=== PATIENT | female | born 1940 | race Caucasian/White ===

== ENCOUNTER 2016-11-22 14:34 | Inpatient (IN) | payer MEDICARE ==
[~2016-11-22] VITALS: Ht 165.1 cm; Wt 84.6 kg
[~2016-11-22 14:34] MED LIST: ASCO100089 PO; CALCIUM CITRATE PO; CRANBERRY TABS PO; EST42.5C VG; GABA300C PO; GLU500 PO; GLUC1TAB57 PO; LEVO50TA83 PO; LIP40 PO; LISI10TA9 PO; MVI PO; NITR-66 PO; PAM25 PO; TURM1POW PO; keflex
[2016-11-22 16:25] VITALS: PULSE 82
[2016-11-22 16:30] VITALS: BP 110/66; PULSE 86; RESP 16; O2SAT 98
[2016-11-22] MEDS ORDERED: Polyethylene Glycol (PEG) 17 Gm Powder PO PRN (17:45)
[2016-11-22] MEDS ORDERED: Ondansetron 2 mg/mL 2 mL Inj IVPUSH PRN (17:45)
[2016-11-22] MEDS ORDERED: Glucose 40% Oral Gel 15 Gm Tube PO PRN (17:45)
--- NOTE | 2016-11-22 17:46 | NUR ---
Admit Pt admitted to [facility] from [facility] at around 1630. A&Ox3, BAILEY walking in room. Vitals stable. Tele placed in NSR 86, no c/o pain. IV SL in right wrist, hard start from report. MD rounded. Admit complete. Oriented to room and call light.
[2016-11-22] MEDS ORDERED: ATOR40TA69 PO (18:16)
[2016-11-22] MEDS ORDERED: CEPH500T PO (18:16)
[2016-11-22] MEDS ORDERED: AMOX500T2 PO (18:16)
[2016-11-22] MEDS ORDERED: CIPR-198 PO (18:16)
[2016-11-22] MEDS ORDERED: EPIN0.3P17 IJ (18:19)
[2016-11-22] MEDS ORDERED: CLOT15CR5 EXTERNAL (18:19)
[2016-11-22] MEDS ORDERED: LEVO50TA83 PO (18:24)
[2016-11-22] MEDS ORDERED: FURO40TA4 PO (18:24)
[2016-11-22] MEDS ORDERED: NITR0.4T SL (18:24)
[2016-11-22] MEDS ORDERED: PREG50CA PO ×2 (18:24)
[2016-11-22] MEDS ORDERED: METF-777 PO (18:24)
[2016-11-22] MEDS ORDERED: SITA50TA PO (18:24)
[2016-11-22] MEDS ORDERED: LORA0.5T PO (18:24)
[2016-11-22] MEDS ORDERED: NYST15CR TOPICAL (18:25)
[2016-11-22] MEDS ORDERED: NORT25CA PO (18:25)
[2016-11-22] MEDS ORDERED: ZOLP5TAB6 PO (18:31)
[2016-11-22] MEDS ORDERED: ACET-171 PO (18:31)
[2016-11-22] MEDS ORDERED: RIVA20TA PO (18:31)
[2016-11-22] MEDS ORDERED: TRAM50TA2 PO (18:31)
[2016-11-22] MEDS ORDERED: PHEN-777 PO (18:31)
[2016-11-22] MEDS ORDERED: TURM1POW PO (18:39)
[2016-11-22] MEDS ORDERED: [UNRECOGNIZED DRUG - OTHER] PO (18:39)
[2016-11-22] MEDS ORDERED: COFF400C PO (18:39)
[2016-11-22] MEDS ORDERED: [UNRECOGNIZED DRUG - OTHER] PEG (18:39)
[2016-11-22] MEDS ORDERED: [UNRECOGNIZED DRUG - OTHER] PO (18:39)
[2016-11-22] MEDS ORDERED: HERB1CAP2 PO (18:39)
[2016-11-22] MEDS ORDERED: [UNRECOGNIZED DRUG - OTHER] PO (18:39)
[2016-11-22] MEDS ORDERED: IC-5 PO (18:39)
[2016-11-22] MEDS ORDERED: [UNRECOGNIZED DRUG - OTHER] PO (18:46)
[2016-11-22] MEDS ORDERED: VITA2500 PO (18:46)
[2016-11-22] MEDS ORDERED: TRIPHALA PO (18:46)
[2016-11-22] MEDS ORDERED: CYAN10008 PO (18:46)
[2016-11-22] MEDS ORDERED: CHOL10008 PO (18:46)
[2016-11-22] MEDS ORDERED: MULT1CAP33 PO (18:46)
[2016-11-22] MEDS ORDERED: [UNRECOGNIZED DRUG - OTHER] PO (18:46)
[2016-11-22] MEDS ORDERED: ASCO100089 PO (18:46)
--- NOTE | 2016-11-22 18:46 | PCM.HPMED ---
Subjective Date of Service November 22, 2016 Primary Provider: Admitting Physician: James Walker MD Primary Care Physician: Travis Killian MD Attending Physician: James Walker MD Admit Status: Full Admit, Ad[facility] to [facility], [facility] Telemetry Chief Complaint: Paroxysmal atrial fibrillation with rapid response History of Present Illness: This is a 76-year-old female transferred from [facility] today for paroxysmal A. fib with rapid ventricular response. She has a history of paroxysmal arrhythmia and had been on amiodarone until May of this year. This was stopped due to concerns about pulmonary toxicity based on pulmonary function tests. She was admitted to [facility] 2 days ago for palpitations and had atrial fibrillation with rapid ventricular response. She was treated with rate control medications including beta blockers. She had a conversion to sinus rhythm but then stated that she went back into atrial flutter later this afternoon. The doctor at the hospital discussed the case with her regular sample builder who requested transfer for a sotalol load. She has only been on amiodarone. She is chronically anticoagulated. She denies any dyspnea or chest pain last day or 2. She denies feeling more weak today. No recent URI symptoms including rhinorrhea cough or sore throat. No leg edema. No calf pain or hemoptysis. The patient is on chronic Synthroid and a TSH of 0.02 obtained at [facility]. She does not believe that her levels been checked in some time. Review of Systems: No weight change, anxiety or depression. No constipation or diarrhea. No temperature intolerance. All systems reviewed and otherwise negative except as noted in history of present illness Allergies Coded Allergies: Diphenhydramine HCl (Verified Allergy, Severe, itching, rash, N/V, 10/04/09) Sulfa (Sulfonamide Antibiotics) (Verified Allergy, Severe, Rash, 10/04/09) Paclitaxel,Semi-Synthetic (Verified Allergy, Mild, Rash, 10/04/09) Uncoded Allergies: transpor tape (Adverse Reaction, causes red weldon on pts body, 10/04/09) pt stating this is the name of surgical tape Home Medications Lovastatin 40 mg a day EpiPen when necessary furosemide 40 mg a day Januvia 50 mg a day levothyroxine 50 g a day lorazepam 0.5 mg when necessary Lyrica 100 mg in the morning 50 at noon and evening Metformin 1000 mg twice a day, nortriptyline 50 mg at bedtime, Nitrostat when necessary, tramadol 50 mg when necessary pains, Zaroxolyn 20 mg daily, as zolpidem 5 mg at bedtime when necessary PMH Paroxysmal atrial flutter Breast cancer with a left modified radical mastectomy in 1999 Cardiac ablation in 2006 Hypothyroidism Hyperlipidemia Diabetes mellitus 2 Overweight Remote history of smoking and stopped in 2000 Surgical History Meniscal repair left knee Tonsillectomy Bladder suspension Tubal ligation Appendectomy Left modified radical mastectomy Right modified radical mastectomy Heart ablation Family History Father with premature CAD with at age 42 heart attack Social History Occupation: retired Hx Alcohol Use: No Hx Substance Use: No Hx Tobacco Use: Yes (quite mar 2003) Living Arrangement: with Family Exam Vital Signs Vital Sign - Last Date Time Temp Pulse Resp B/P Pulse Ox O2 Delivery O2 Flow Rate FiO2 11/22/16 16:30 36.6 86 16 110/66 98 Room Air Exam Oriented 3. No distress. Fluent speech. Normal affect. Normal skull. Normal nose and ears. Anicteric sclera, symmetric pupils Oropharynx is unremarkable, no facial droop. Neck is supple, normal thyroid. No adenopathy. Lungs are clear, normal effort rate. Heart is regular without murmur gallop or rub. Abdomen soft, nondistended or tender. Extremities are free of pedal edema. Good radial and pedal pulses. Skin is free of rash, lesions. No petechiae or ecchymosis. Joints are grossly normal. Cranial nerves are grossly normal. Motor strength is normal in all extremities. Normal muscular tone. Assessment & Plan Paroxysmal atrial fibrillation with rapid ventricular response. She is currently rate controlled. This is not POA. We will perform an EKG and give her 80 mg of sotalol with a repeat EKG 2 hours later. Follow on telemetry and reevaluate in the morning for his second dose of sotalol. These instructions are per her regular sample builder will also assist with this case.. Continue Zaroxolyn. Hyperlipidemia, POA. Usual medications Chronic hypothyroidism with a depressed TSH, POA. Hold Synthroid and recheck TSH diabetes mellitus 2, POA. Hold oral medications and use correctional lispro. Peripheral neuropathy, POA. Usual dose of Lyrica. The patient is full resuscitation confirmed Length of stay assessment to be over 2 nights, inpatient status. Pain Evaluation: Adequate Pain Control Resuscitation Status: CPR: Attempt Resuscitation Time spent 50 minutes James Walker MD November 22, 2016 18:46
--- NOTE | 2016-11-22 19:14 | NUR ---
Med history - supplements Pt. provides detailed list of medications, which included many supplements for weight loss and glucose control. She states she has been seeing a financial wellness coach who is a nurse, who has been recommending some, and she has started some based on recommendations in books about glucose control. Pt. states she is concerned these may have started her a. fib. ED pharmacist Dorothy is provided the list to review, and a note is left for the provider asking for home medication review. Pt. last took her home meds and supplements Saturday.
[2016-11-22 20:16] VITALS: BP 130/69; PULSE 89; RESP 16; O2SAT 95
[2016-11-22] MEDS: Insulin LISPRO 300 Unit/3 mL Inj SUBQ SCH (22:00)
[2016-11-22 23:10] VITALS: BP 132/76; PULSE 80; RESP 16; O2SAT 97
[2016-11-23] VITALS (8 sets, daily range): BP systolic 107–142; BP diastolic 63–85; PULSE 60–79; RESP 15–16; O2SAT 94–99
--- NOTE | 2016-11-23 01:47 | NUR ---
Sotalol Loading Pt initial EKG prior to administering sotalol was completed at approximately 1823. Pt received 80mg sotalol PO at approximately 2030. Pt's follow-up EKG 2H after administering sotalol was completed at approximately 2230. Pt has continued to be in SR80s.
--- NOTE | 2016-11-23 01:53 | NUR ---
UA Sent Per protocol pt urine sample was sent to lab at approximately 0130. Urine sample did appear to be cloudy and pt stated that they recently had a UTI. Pt does no c/o painful urination at this time.
[2016-11-23 02:07] LABS: APPEARANCE,URINE CLOUDY (CLEAR,HAZY); COLOR,URINE YELLOW (YELLOW); OCCULT BLOOD,URINE MODERATE (NEGATIVE); PH,URINE 5.5 (5.0-8.0); UROBILINOGEN,URINE NORMAL (NORMAL)
[2016-11-23 03:07] LABS: BASOPHILS % (AUTO) 0.5 % (0-3); EOSINOPHILS % (AUTO) 2.7 % (0-5); MONOCYTES % (AUTO) 8.6 % (4-12); Mean Corpuscular Hemoglobin 28.3 pg (27.0-35.0); Mean Corpuscular Volume 87.2 fL (81-100); NEUTROPHILS % (AUTO) 57.5 % (40-74); Platelet Count 157 bil/L (150-400)
[2016-11-23 03:39] LABS: Magnesium 1.8 mg/dL (1.6-2.6)
--- NOTE | 2016-11-23 08:00 | NUR ---
Up to chair Pt up to chair for breakfast. Ambulating in halls prior. Pt educated to stay in unit due to tele monitoring and medication. Pt ambulated out to waiting hallway. Care continues.
[2016-11-23] MEDS: Insulin LISPRO 300 Unit/3 mL Inj SUBQ SCH ×4 (08:56→20:57)
[2016-11-23] MEDS: Potassium Chloride 20 mEq SR Tablet PO SCH (09:04)
[2016-11-23 10:08] LABS: Free Thyroxine Index 4.2 (1.2-4.9); Thyroxine (T4) 11.9 ug/dL (4.5-12.0)
--- NOTE | 2016-11-23 11:07 | NUR ---
Social Work: Initial Assessment D: Per EMR review, pt is a 76 year old female admited for afib with RVR. Pt is Medicare with [employer] Supplement; pt has a LTC policy but cannot remember the name of the company; pt has no VA benefits. PCP is Travis Killian MD. NOK Is Umer Virk, spouse, . Advanced directives not yet completed- requested copy once finalized. Readmit score is low, 3/8. STAIN REMOVER met with pt at bedside. Sw role explained and contact info provided. See initial assessment. Pt lives in [place] with her spouse. She is I at baseline and uses no DME. Pt continues to drive and travels back and forth from [place] to [place] with her . Pt has never had HH and was briefly at skilled rehab in [place] several years ago. Pt anticipates no home needs. Pt has several internal flights of stairs but has not found them to be problematic for her. Pt provided with HH CHOICE LIST to review but pt does not believe she will need it. Pt has been I during admission. Pt's spouse will transport her home when medically stable. A: Pt who is I at baseline. P: Anticipate pt to discharge home; STAIN REMOVER to follow for needs. EVANGELISTA Laguna Addendum: 11/23/16 at 1114 by SILVIA GREGG Amended: Links added.
--- NOTE | 2016-11-23 12:05 | NUR ---
PT walked to the bathroom and back to bed before checking her blood pressure. Addendum: 11/23/16 at 1206 by AB JOSHUA CNA Amended: Links added.
--- NOTE | 2016-11-23 15:51 | PCM.PNMED ---
Subjective Date of Service November 23, 2016 Subjective Ms Deutsch is a 76-year-old female with a history of paroxysmal Afib with RVR, diabetes, hypothyroidism, and breast cancer status post bilateral mastectomy transferred from [facility] at her Pharmaceutical Physician's request for a sotalol load. Patient's Afib was previously well controlled on amiodarone which was discontinued in May 2016 due to concerns about pulmonary toxicity. Admitted to [facility] in sinus rhythm. Received 80mg PO sotalol at 2021 and repeat ECG without prolonged QTc. Patient is doing well this morning. She is sitting up in bed and denies chest pain or palpitations, shortness of breath, headache, dizziness, change in vision, GI or symptoms. Exam Vital Signs Vital Sign - Last Date Time Temp Pulse Resp B/P Pulse Ox O2 Delivery O2 Flow Rate FiO2 11/23/16 05:26 77 11/23/16 03:46 36.7 15 128/76 94 Room Air Intake and Output 11/22/16 11/22/16 11/23/16 Cumulative From/Thru 15:00 23:00 07:00 11/22/16 17:16 - 11/23/16 05:29 Intake Total 400 ml 400 ml Output Total 650 ml 650 ml Balance -250 ml -250 ml Intake Oral 400 ml 400 ml Output Urine Total 650 ml 650 ml Exam General: Well-developed, elderly female sitting up in bed in no acute distress, appropriately interactive HEENT: Normocephalic, atraumatic.PERRLA. Mucosa moist/pink. Neck: No JVD, lymphadenopathy or thyromegaly. Cardiovascular: Regular rate and rhythm, normal S1, S2. Pulmonary: Clear to auscultation bilaterally with no crackles, wheezes, or rhonchi. Abdomen: Bowel tones present. Soft, nontender, nondistended. No masses appreciated. Extremities: Distal pulses intact and equal bilaterally, no edema, cyanosis or clubbing. Skin: Normal temperature, turgor, and texture; no rashes or ulcerations. Neurological: CN II-XII grossly intact. No focal motor or sensory deficit. No known gait impairment. Psychiatric: Normal mood and affect. Alert and oriented to person, place, and time. IVs and Medications Medications Reviewed: Medications were reviewed in detail Lab and Diagnostics Laboratory Tests Test 11/22/16 18:15 5/26/17 01:30 11/23/16 02:40 Urine Color Yellow (YELLOW) Urine Appearance Cloudy (CLEAR,HAZY) Urine pH 5.5 (5.0-8.0) Urine Specific [place] 1.019 (1.003-1.035) Urine Protein Negativemg/dL (NEG,TRACE) Urine Glucose (UA) Negativemg/dL (NEGATIVE) Urine Ketones Negativemg/dL (NEGATIVE) Urine Occult Blood Moderate (NEGATIVE) Urine Nitrite Negative (NEGATIVE) Urine Bilirubin Negative (NEGATIVE) Urine Urobilinogen Normalmg/dL (NORMAL) Urine Leukocyte Esterase Large (NEGATIVE) Urine RBC 3-10/hpf (0-2) Urine WBC >50/hpf (0-5) Urine Epithelial Cells Many/hpf (NONE-MOD) Urine Crystals Amorphous urates (NONE Urine Bacteria None/hpf (NONE-FEW) Urine Hyaline Casts None/lpf (NONE) Urine Granular Casts None seen (NONE SEEN) Urine Waxy Casts None seen (NONE SEEN) Urine Red Blood Cell Casts None seen (NONE SEEN) Urine White Blood Cell Casts None seen (NONE SEEN) Urine Mucus None seen (None Seen) Urine Trichomonas None seen (NONE SEEN) Urine Yeast None (NONE SEEN) Urine Culture Reflexed Indicated Hold Urine Received (Received) White Blood Count 6.2th/mm3 (3.8-10.1) Red Blood Count 4.13mil/mm3 (3.90-5.20) Hemoglobin 11.7g/dL (12.0-15.6) Hematocrit 36.0% (35.0-46.0) Mean Corpuscular Volume 87.2fL (81-100) Mean Corpuscular Hemoglobin 28.3pg (27.0-35.0) Mean Corpuscular Hemoglobin Concent 32.5% (32.0-37.0) Red Cell Distribution Width 14.8% (12.3-15.4) Platelet Count 157bil/L (150-400) Neutrophils (%) (Auto) 57.5% (40-74) Lymphocytes (%) (Auto) 30.5% (14-46) Monocytes (%) (Auto) 8.6% (4-12) Eosinophils (%) (Auto) 2.7% (0-5) Basophils (%) (Auto) 0.5% (0-3) Sodium Level 141mEq/L (134-144) Potassium Level 3.8mEq/L (3.5-5.2) Chloride Level 103mEq/L (97-108) Carbon Dioxide Level 24mmol/L (18-29) Blood Urea Nitrogen 23mg/dL (8-27) Creatinine 0.55mg/dL (0.57-1.00) Estimat Glomerular Filtration Rate 154mL/min (>59) Glucose Level 176mg/dL (60-99) Calcium Level 9.1mg/dL (8.5-10.1) Magnesium Level 1.8mg/dL (1.6-2.6) Total Bilirubin 0.4mg/dL (0.0-1.2) Aspartate Amino Transf (AST/SGOT) 71U/L (0-50) Alanine Aminotransferase (ALT/SGPT) 54U/L (0-32) Alkaline Phosphatase 97U/L (25-165) Total Protein 7.9g/dL (6.4-8.4) Albumin 3.2g/dL (3.4-5.0) Result Diagram: 11/23/16 0240 11/23/16 0240 Microbiology 11/23/16 Urine Culture-pending Assessment & Plan Ms Deutsch is a 76-year-old female with a history of paroxysmal Afib with RVR, diabetes, hypothyroidism, and breast cancer status post bilateral mastectomy transferred from [facility] at her Pharmaceutical Physician's request for a sotalol load. Patient's Afib was previously well controlled on amiodarone which was discontinued in May 2016 due to concerns about pulmonary toxicity. Paroxysmal Afib with rapid ventricular response. Not present on admission. Active. -Patient in sinus rhythm at presentation to [facility]. -Received 80mg PO Sotalol approx 2021 on 11/22 without evidence of ECG changes. -Continue Sotalol, ECGs per Cardiology. Diabetes mellitus, type 2. Chronic. Present on admission. Presumed stable. -Glucose 176, HbA1c pending -Continue to hold home metformin, januvia -Correctional insulin lispro as needed. Peripheral neuropathy, chronic. Present on admission. Presumed stable. -Likely secondary to diabetes. -Continue home dose of Lyrica. Hyperlipidemia, chronic. Present on admission. Presumed stable. -Continue home atorvastatin Hypothyroidism, chronic. Present on admission. Active. -TSH depressed at presentation, 0.006 with normal free T4, T3. -Continue to hold home dose of levothyroxine, 50mcg daily. -Repeat TSH Acetaminophen-fever/headache/mild/moderate pain Antiemetics, as needed Bowel regimen, as needed. Disposition: Patient will likely discharge home in 1-2 days pending Sotalol load and ECG monitoring. Resuscitation Status: CPR: Attempt Resuscitation Attending Statement Patient seen and examined with house staff. Agree with all attached documentation. Leigha Gregory DO November 23, 2016 08:11 James Walker MD November 24, 2016 07:44
--- NOTE | 2016-11-23 19:42 | NUR ---
Ambulation/Oral Diabetes Medication Pt ambulated around unit this shift. Tolerated well. Pt asking for her oral diabetic medications, states she does not like to get blood sugars checked so much due to risk of infection. MD notified. Care continues.
[2016-11-24] VITALS (8 sets, daily range): BP systolic 112–123; BP diastolic 66–71; PULSE 56–73; RESP 16–20; O2SAT 95–99
--- NOTE | 2016-11-24 05:57 | NUR ---
IV Site Pt's PIV site was infiltrated and had to be DC'd. The catheter was intact when removed. forklift technician had to assist in starting a new PIV site since the pt only has her right arm that can be used for BP and needle sticks due to left mastectomy. was notified that it was difficult to get an IV start on the pt and gave permission to start an IV in the pt's foot if needed. forklift technician was able to get a PIV start on the pt's right forearm using a 22 gauge. Pt's arm does needs to be warmed up prior to any further attempts at PIV sites.
[2016-11-24] MEDS: Insulin LISPRO 300 Unit/3 mL Inj SUBQ SCH ×4 (08:05→22:00)
[2016-11-24] MEDS: Potassium Chloride 20 mEq SR Tablet PO SCH (08:05)
--- NOTE | 2016-11-24 10:09 | PCM.PNMED ---
Subjective Date of Service November 24, 2016 Subjective Ms Deutsch is a 76-year-old female with a history of paroxysmal Afib with RVR, diabetes, hypothyroidism, and breast cancer status post bilateral mastectomy transferred from [facility] at her Filer And Sander's request for a sotalol load. Patient's Afib was previously well controlled on amiodarone which was discontinued in May 2016 due to concerns about pulmonary toxicity. No acute events overnight. Reviewed telemetry, patient remains in normal sinus rhythm with heart rate in 60s and 70s. QTc 430. This morning patient is resting comfortably and without complaint. She states that she feels well and denies chest pain, palpitations, difficulty breathing, dizziness, nausea or vomiting. Exam Vital Signs Vital Sign - Last Date Time Temp Pulse Resp B/P Pulse Ox O2 Delivery O2 Flow Rate FiO2 11/24/16 05:44 65 11/24/16 03:29 36.6 16 114/66 95 Room Air Intake and Output 11/23/16 11/23/16 11/24/16 Cumulative From/Thru 15:00 23:00 07:00 11/22/16 17:16 - 11/24/16 05:58 Intake Total 920 ml 400 ml 1720 ml Output Total 1550 ml 1150 ml 3350 ml Balance -630 ml -750 ml -1630 ml Intake Oral 920 ml 400 ml 1720 ml Output Urine Total 1550 ml 1150 ml 3350 ml # Voids 3 3 # Bowel Movements 1 0 1 Exam General: Well-developed, elderly female sitting up in bed in no acute distress, appropriately interactive HEENT: Normocephalic, atraumatic.PERRLA. Mucosa moist/pink. Neck: No JVD, lymphadenopathy or thyromegaly. Cardiovascular: Regular rate and rhythm, normal S1, S2. 3/6 systolic ejection murmur Pulmonary: Clear to auscultation bilaterally with no crackles, wheezes, or rhonchi. Abdomen: Bowel tones present. Soft, nontender, nondistended. No masses appreciated. Extremities: Distal pulses intact and equal bilaterally, no edema, cyanosis or clubbing. Skin: Normal temperature, turgor, and texture; no rashes or ulcerations. Neurological: CN II-XII grossly intact. No focal motor or sensory deficit. No known gait impairment. Psychiatric: Normal mood and affect. Alert and oriented to person, place, and time. IVs and Medications Medications Reviewed: Medications were reviewed in detail Lab and Diagnostics Laboratory Tests Test 11/24/16 02:35 Sodium Level 141mEq/L (134-144) Potassium Level 4.1mEq/L (3.5-5.2) Chloride Level 103mEq/L (97-108) Carbon Dioxide Level 24mmol/L (18-29) Blood Urea Nitrogen 21mg/dL (8-27) Creatinine 0.50mg/dL (0.57-1.00) Estimat Glomerular Filtration Rate 172mL/min (>59) Glucose Level 136mg/dL (60-99) Calcium Level 9.2mg/dL (8.5-10.1) Total Bilirubin 0.5mg/dL (0.0-1.2) Aspartate Amino Transf (AST/SGOT) 37U/L (0-50) Alanine Aminotransferase (ALT/SGPT) 43U/L (0-32) Alkaline Phosphatase 90U/L (25-165) Total Protein 8.0g/dL (6.4-8.4) Albumin 3.3g/dL (3.4-5.0) Result Diagram: 11/23/16 0240 11/24/16 0235 Microbiology 11/23/16 Urine Culture-pending Assessment & Plan Ms Deutsch is a 76-year-old female with a history of paroxysmal Afib with RVR, diabetes, hypothyroidism, and breast cancer status post bilateral mastectomy transferred from [facility] at her Filer [employer] Sander's request for a sotalol load. Patient's Afib was previously well controlled on amiodarone which was discontinued in May 2016 due to concerns about pulmonary toxicity. Paroxysmal Afib with rapid ventricular response. Not present on admission. Active. -Patient in sinus rhythm at presentation to [facility]. -Received 80mg PO Sotalol approx 2021 on 11/22 without evidence of ECG changes. -Continue Sotalol, ECGs per Cardiology. Diabetes mellitus, type 2. Chronic. Present on admission. Presumed stable. -Glucose 176, HbA1c pending -Continue home metformin, januvia -Correctional insulin lispro as needed. Peripheral neuropathy, chronic. Present on admission. Presumed stable. -Likely secondary to diabetes. -Continue home dose of Lyrica. Hyperlipidemia, chronic. Present on admission. Presumed stable. -Continue home atorvastatin Hypothyroidism, chronic. Present on admission. Active. -TSH depressed at presentation, 0.006 with normal free T4, T3. -Decrease home dose of levothyroxine to 25mcg daily (previous dose 50mcg daily) . -Will need close outpatient followup. Acetaminophen-fever/headache/mild/moderate pain Antiemetics, as needed Bowel regimen, as needed. Disposition: Patient will likely discharge home in 1-2 days pending Sotalol load and ECG monitoring. Pain Evaluation: Adequate Pain Control GI Prophylaxis: Not indicated VTE Prophylaxis: Sub-Q Heparin (Unfractionated) Resuscitation Status: CPR: Attempt Resuscitation Attending Statement Patient seen and examined with house staff. Agree with all attached documentation. Leigha Gregory DO November 24, 2016 07:38 James Walker MD November 25, 2016 07:37
--- NOTE | 2016-11-24 14:03 | NUR ---
Social Work: Readiness for Discharge D: Per EMR review, pt is on day 2 of hospitalization for afib with RVR. Pt is not medically stable for discharge, anticipate 1-2 more days. Pt is independent at baseline and uses no DME. Pt anticipates no home needs. Pt has been I during admission. Pt's spouse will transport her home when medically stable. Anticipate pt to discharge home with no SW needs, SW will continue to follow if needs arise. A: Pt who is I at baseline. P: Anticipate pt to discharge home; HEEL ATTACHER WOOD to follow for needs. Ruthy Connors MSW
--- NOTE | 2016-11-25 03:16 | NUR ---
Discharge Medication Pt is concerned about being discharged and not being able to get the sotalol prescription filled in time since the pharmacy she uses is not open on Sundays. Pt wants to make sure that she has enough of the medication until she is able to get her prescription filled at her pharmacy. She doesn't want to get the prescription filled at a pharmacy that she normally doesn't use because she said she doesn't want to go back to another location for a refill when the time comes. Will make oncoming RN aware of the pt's concerns so that the MD can address the situation prior to discharge.
[2016-11-25 03:33] VITALS: BP 116/65; PULSE 76; RESP 18; O2SAT 98
[2016-11-25 05:09] VITALS: PULSE 74
[2016-11-25] MEDS: Potassium Chloride 20 mEq SR Tablet PO SCH (08:15)
[2016-11-25 08:23] VITALS: BP 112/59; PULSE 61; RESP 18; O2SAT 99
[2016-11-25] MEDS: Insulin LISPRO 300 Unit/3 mL Inj SUBQ SCH ×2 (08:31→12:00)
--- NOTE | 2016-11-25 10:41 | NUR ---
Social Work: Discharge D: Per EMR review, pt is on day 3 of hospitalization for afib with RVR. Pt is medically stable for discharge, SW awaiting discharge orders. Pt is independent at baseline and has been I during admission. SW met with pt at bedside regarding discharge needs. Pt denies any questions or concerns regarding her discharge at this time. Pt's spouse will transport her home via POV. A: Pt who is I at baseline. P: Pt to discharge home, no discharge needs identified at this time. Ruthy Connors MSW
[2016-11-25 11:27] VITALS: PULSE 72
--- NOTE | 2016-11-25 11:28 | PCM.DIMED ---
Discharge Instructions Date of Service November 25, 2016 Dates of Hospitalization November 22, 2016 at 16:18 Discharge Diagnosis Discharge Diagnosis Paroxysmal Afib with rapid ventricular response. Resolved. Hyperthyroidism with change in Synthroid dose Diabetes mellitus, type 2. Peripheral neuropathy. Hyperlipidemia Hypothyroidism Diet Discharge Diet: No restrictions Activity Discharge Activity: No restrictions Patient Instructions Patient Instructions Cardiology will call you for an EKG on appointment. They will also coordinate further follow-up with Dr. Duque Follow-up Provider: Travis Killian MD Follow-up with PCP in: 1 week James Walker MD November 25, 2016 11:28
[2016-11-25] MEDS ORDERED: LEVO25TA2 PO (11:29)
[2016-11-25] MEDS ORDERED: SOTA80TA PO (11:29)
--- NOTE | 2016-11-25 12:19 | NUR ---
Discharge Pt ordered for discharge home. pt agreeable. Discharge instructions and medications reviewed with patient and . pt escorted to front lobby via wheelchair with all belongings at about 1225.
--- NOTE | 2016-11-25 15:51 | PCM.DC.MED ---
Discharge Summary Date of Service November 25, 2016 Dates of Hospitalization Date of Hospital Admission November 22, 2016 at 16:18 Date of Discharge: November 25, 2016 Providers: Admitting Physician: Jennie Davila MD Primary Care Physician: Travis Killian MD Attending Physician: Jennie Davila MD Diagnosis at Time of Discharge Diagnosis at Time of Discharge Paroxysmal Afib with rapid ventricular response. Resolved. Hyperthyroidism with change in Synthroid dose Diabetes mellitus, type 2. Peripheral neuropathy. Hyperlipidemia Hypothyroidism Consultations Cardiology Procedures ECG 12 Lead Normal sinus rhythm Invasive Procedures None Brief History This is a 76-year-old female transferred from [facility] today for paroxysmal A. fib with rapid ventricular response. She has a history of paroxysmal arrhythmia and had been on amiodarone until May of this year. This was stopped due to concerns about pulmonary toxicity based on pulmonary function tests. She was admitted to [facility] 2 days ago for palpitations and had atrial fibrillation with rapid ventricular response. She was treated with rate control medications including beta blockers. She had a conversion to sinus rhythm but then stated that she went back into atrial flutter later this afternoon. The doctor at the hospital discussed the case with her regular brand protection manager who requested transfer for a sotalol load. She has only been on amiodarone. She is chronically anticoagulated. She denies any dyspnea or chest pain last day or 2. She denies feeling more weak today. No recent URI symptoms including rhinorrhea cough or sore throat. No leg edema. No calf pain or hemoptysis. The patient is on chronic Synthroid and a TSH of 0.02 obtained at [facility]. She does not believe that her levels been checked in some time. Hospital Course Ms Deutsch is a 76-year-old female with a history of paroxysmal Afib with RVR, diabetes, hypothyroidism, and breast cancer status post bilateral mastectomy transferred from [facility] at her Accountant Clerk's request for a sotalol load. Patient's Afib was previously well controlled on amiodarone which was discontinued in May 2016 due to concerns about pulmonary toxicity. Paroxysmal Afib with rapid ventricular response. Not present on admission. Active. -Patient in sinus rhythm at presentation to [facility]. -Received 80mg PO Sotalol approx 2021 on 11/22 without evidence of ECG changes. -Continue Sotalol, ECGs per Cardiology. She was admitted and loaded with sotalol. She did well and stayed normal sinus rhythm. Her QTC is elongated a bit but less than 15%. She was followed while in house by cardiology PA. Diabetes mellitus, type 2. Chronic. Present on admission. Presumed stable. -Glucose 176, HbA1c pending -Continue home metformin, januvia -Correctional insulin lispro as needed. This was stable on the hospital Peripheral neuropathy, chronic. Present on admission. Presumed stable. -Likely secondary to diabetes. -Continue home dose of Lyrica. Hyperlipidemia, chronic. Present on admission. Presumed stable. -Continue home atorvastatin Hypothyroidism, chronic. Present on admission. Active. -TSH depressed at presentation, 0.006 with normal free T4, T3. -Decrease home dose of levothyroxine to 25mcg daily (previous dose 50mcg daily) . -Will need close outpatient followup. She had evidence of suppressed TSH therefore her Synthroid dose will be decreased from 50 down to 25 mics a day with repeat evaluation in about 60 weeks. Acetaminophen-fever/headache/mild/moderate pain Antiemetics, as needed Bowel regimen, as needed. Disposition: Patient will likely discharge home in 1-2 days pending Sotalol load and ECG monitoring. Exam Vital Signs (Last) Date Time Temp Pulse Resp B/P Pulse Ox O2 Delivery O2 Flow Rate FiO2 11/25/16 11:27 72 11/25/16 08:23 18 112/59 99 Room Air 11/25/16 03:33 36.4 Exam Patient was seen and examined on the day of discharge Test 11/22/16 18:15 11/23/16 01:30 11/23/16 02:40 11/24/16 02:35 Free Thyroxine Index 4.2 (1.2-4.9) Thyroxine (T4) 11.9ug/dL (4.5-12.0) Triiodothyronine (T3) Uptake 35% (24-39) Urine Color Yellow (YELLOW) Urine Appearance Cloudy (CLEAR,HAZY) Urine pH 5.5 (5.0-8.0) Urine Specific [place] 1.019 (1.003-1.035) Urine Protein Negativemg/dL (NEG,TRACE) Urine Glucose (UA) Negativemg/dL (NEGATIVE) Urine Ketones Negativemg/dL (NEGATIVE) Urine Occult Blood Moderate (NEGATIVE) Urine Nitrite Negative (NEGATIVE) Urine Bilirubin Negative (NEGATIVE) Urine Urobilinogen Normalmg/dL (NORMAL) Urine Leukocyte Esterase Large (NEGATIVE) Urine RBC 3-10/hpf (0-2) Urine WBC >50/hpf (0-5) Urine Epithelial Cells Many/hpf (NONE-MOD) Urine Crystals Amorphous urates (NONE Urine Bacteria None/hpf (NONE-FEW) Urine Hyaline Casts None/lpf (NONE) Urine Granular Casts None seen (NONE SEEN) Urine Waxy Casts None seen (NONE SEEN) Urine Red Blood Cell Casts None seen (NONE SEEN) Urine White Blood Cell Casts None seen (NONE SEEN) Urine Mucus None seen (None Seen) Urine Trichomonas None seen (NONE SEEN) Urine Yeast None (NONE SEEN) Urine Culture Reflexed Indicated Hold Urine Received (Received) White Blood Count 6.2th/mm3 (3.8-10.1) Red Blood Count 4.13mil/mm3 (3.90-5.20) Hemoglobin 11.7g/dL (12.0-15.6) Hematocrit 36.0% (35.0-46.0) Mean Corpuscular Volume 87.2fL (81-100) Mean Corpuscular Hemoglobin 28.3pg (27.0-35.0) Mean Corpuscular Hemoglobin Concent 32.5% (32.0-37.0) Red Cell Distribution Width 14.8% (12.3-15.4) Platelet Count 157bil/L (150-400) Neutrophils (%) (Auto) 57.5% (40-74) Lymphocytes (%) (Auto) 30.5% (14-46) Monocytes (%) (Auto) 8.6% (4-12) Eosinophils (%) (Auto) 2.7% (0-5) Basophils (%) (Auto) 0.5% (0-3) Hemoglobin A1c 7.6% (4.8-5.6) Magnesium Level 1.8mg/dL (1.6-2.6) Total Bilirubin 0.5mg/dL (0.0-1.2) Aspartate Amino Transf (AST/SGOT) 37U/L (0-50) Alanine Aminotransferase (ALT/SGPT) 43U/L (0-32) Alkaline Phosphatase 90U/L (25-165) Total Protein 8.0g/dL (6.4-8.4) Albumin 3.3g/dL (3.4-5.0) Test 11/25/16 02:30 Sodium Level 140mEq/L (134-144) Potassium Level 3.9mEq/L (3.5-5.2) Chloride Level 101mEq/L (97-108) Carbon Dioxide Level 24mmol/L (18-29) Blood Urea Nitrogen 26mg/dL (8-27) Creatinine 0.50mg/dL (0.57-1.00) Estimat Glomerular Filtration Rate 172mL/min (>59) Glucose Level 142mg/dL (60-99) Calcium Level 9.6mg/dL (8.5-10.1) Thyroid Stimulating Hormone (TSH) 0.006uIU/mL (0.450-4.500) Microbiology Results 11/23/16 Urine Culture-pending Discharge Medications Discharge Medications ([Banaba [place]]) 250 MG PEG TID (Reported) ([Belly Trim]) 2 CAPSULE PO BID (Reported) ([Ic-5]) 1 CAPSULE PO BIDWM (Reported) ([Garcinia Slim]) 1 CAPSULE PO BIDAC (Reported) ([glucoburn]) 1 DOSE PO DIRECTED (Reported) ([PGX plus mulberry]) 1 DOSE PO DIRECTED (Reported) ([Phase 2 carb frank]) 1,000 MG PO TIDAC (Reported) ([Triphala]) 1 DOSE PO DIRECTED (Reported) Ascorbic Acid (Vitamin C) 1,000 Mg Tab.chew 1,000 MG PO DAILY (Reported) Atorvastatin Calcium (Atorvastatin Calcium) 40 Mg Tablet 40 MG PO DAILY ( Reported) Cholecalciferol (Vitamin D3) (Vitamin D3) 1,000 Unit Tab.chew 1,000 UNIT PO DAILY (Reported) Coffee Extract (Green Coffee Dawn) 400 Mg Capsule 800 MG PO BID (Reported) Cyanocobalamin (Vitamin B-12) (Vitamin B-12) 1,000 Mcg Tablet 1,000 MCG PO DIRECTED (Reported) Furosemide (Furosemide) 40 Mg Tablet 40 MG PO DAILY (Reported) Herbal Drugs (Colon Herbal Cleanser) 1 Each Capsule 1 EACH PO BID (Reported) Levothyroxine (Synthroid) 25 Mcg Tablet 25 MCG PO DAILY Prescribed by: JENNIE DAVILA MD Metformin HCl (Metformin HCl ER) 500 Mg [id number] 1,000 MG PO BID (Reported) Multivitamin (Multivitamins) 1 Each Capsule 1 EACH PO DAILY (Reported) Pregabalin (Lyrica) 50 Mg Capsule 100 MG PO BID (Reported) Pregabalin (Lyrica) 50 Mg Capsule 50 MG PO DAILYWL (Reported) Rivaroxaban (Xarelto) 20 Mg Tablet 20 MG PO DAILY (Reported) Sitagliptin Phos (Januvia) 50 Mg Tablet 50 MG PO DAILY (Reported) Sotalol HCl (Sotalol) 80 Mg Tablet 80 MG PO BID Prescribed by: JENNIE DAVILA MD Turmeric (Curcumin) 1 Gm Powder 665 MG PO DAILY (Reported) Vitamin A (Vitamin A) 25,000 Unit Capsule 25,000 UNIT PO DAILY (Reported) As needed Acetaminophen (Acetaminophen) 500 Mg Tablet 1,000 MG PO Q6H PRN PRN For Pain ( Reported) Amoxicillin (Amoxicillin) 500 Mg Tablet 500 MG PO DIRECTED PRN PRN UTI ( Reported) Clotrimazole/Betamethasone Dip (Lotrisone) 15 Gm Cream..g. 1 APPLIC EXTERNAL DIRECTED PRN PRN Topical Fungus (Reported) Epinephrine (Epinephrine) 0.3 Mg/0.3 Ml Auto.injct 0.3 MG IJ PRN For Anaphyllaxis (Reported) Lorazepam (Lorazepam) 0.5 Mg Tablet 0.5 MG PO HS PRN PRN For Insomnia (Reported ) Nitroglycerin SL (Nitrostat) 0.4 Mg Tab.subl 0.4 MG SL Q5MIN PRN PRN For Chest Pain (Reported) Nystatin/Triamcin (Nystatin-Triamcinolone Cream) 15 Gm Cream..g. 1 APPLIC TOPICAL DIRECTED PRN PRN Facial Fungus (Reported) Phenazopyridine (Phenazopyridine) 200 Mg Tablet 200 MG PO BID PRN PRN Dysuria ( Reported) Tramadol (Tramadol) 50 Mg Tablet 25 MG PO BID PRN PRN For Pain (Reported) Zolpidem (Zolpidem) 5 Mg Tablet 2.5-5 MG PO HS PRN PRN For Insomnia (Reported) Followup Plan Disposition: Home Discharge Diet: No restrictions Discharge Activity: No restrictions Patient Instructions Cardiology will call you for an EKG on appointment. They will also coordinate further follow-up with Dr. Duque Follow-up Provider: Kotal, Travis V MD Follow-up with PCP in: 1 week Time spent 45 minutes Jennie Davila MD November 25, 2016 15:51
== END 2016-11-25 12:30 | disposition home or self-care (01) | DRG 310 ==
LOC: PCC 16:18
PROVIDERS: ADMIT Hospitalist; ATTEND Hospitalist
PROC: 3E0DXRZ Introduction of Antiarrhythmic into Mouth and Pharynx, External Approach (ICD-10-PCS; principal; 2016-11-22)
DX: I48.0 Paroxysmal atrial fibrillation (principal); E78.5 Hyperlipidemia, unspecified; E11.42 Type 2 diabetes mellitus with diabetic polyneuropathy; E03.9 Hypothyroidism, unspecified; Z85.3 Personal history of malignant neoplasm of breast